=== PATIENT | male | born 1935 | race Caucasian/White ===

== ENCOUNTER 2017-12-05 19:59 | Emergency (ER) | payer MEDICARE ==
[~2017-12-05] VITALS: Ht 180.3 cm; Wt 86.4 kg
[~2017-12-05 19:59] MED LIST: 00186-0372-20 IH; ADALAT CC30 MG PO; ASPI325T6 PO; ASPIRIN 81M81 MG/TA2 PO; CALCIUM WITH D31 CTB PO; CARTIA XT240 MG PO; COLACE 100100 MG/CAP PO; COREG 6.256.25 MG/TA PO; COZAAR100 MG PO; FLOMAX 0.40.4 MG/CAP PO; GLUCOSAMINE & C1 CA1 PO; LORTAB 5/500 501 TAB PO; MULTIPLE VITAMI1 CAP PO; NORCO 325 MG-7.1 TAB PO; NORVASC 5MG5 MG/TAB PO; PREDNISONE20 MG PO; PROAIR HFA0.09 MG/AC IH; RESTASIS 60VL; ROXICODONE 55 MG/TAB PO; SINEMET 25/101 UDTAB PO; SPIRIVA RE2.5 MCG/Ac IH; STOOL SOFTENER100 M2; STOOL SOFTNER; VITAMIN B COMPL1 SGL PO; VOLTAREN 75 DR75 MG PO; VTAMINC250TA; ZOCOR 40MG40 MG PO
[2017-12-05 20:03] VITALS: TEMP 98.3
[2017-12-05 20:42] LABS: HEMATOCRIT 35.3 % (42.0-52.0); HEMOGLOBIN 11.7 g/dl (13.5-18.0); MEAN CELL VOLUME 95 fl (80.0-100.0); MEAN CORPUSCULAR HEMOGLOBIN 32 pg (27.0-31.0); MEAN CORPUSCULAR HGB CONC 33 g/dl (33.0-37.0); MEAN PLATELET VOLUME 9.8 fl (7.4-10.4); PLATELET COUNT 265 K/mm3 (130-400)
[2017-12-05 20:47] LABS: PROTHROMBIN TIME 11.9 SECONDS (9.7-12.8)
[2017-12-05 20:52] LABS: ARTERIAL BLD GAS O2 SATURATION 92.2 % (92-100); ARTERIAL BLOOD GAS BASE EXCESS -0.6 (-2-2); ARTERIAL BLOOD GAS HCO3 24.7 meq/L (22-26); ARTERIAL BLOOD GAS PCO2 43.1 mmHg (35-45); ARTERIAL BLOOD GAS PO2 71.8 mmHg (80-100); ARTERIAL BLOOD GAS pH 7.38 (7.35-7.45)
[2017-12-05 20:52] LABS: ALANINE AMINOTRANSFERASE 29 U/L (21-72); ALBUMIN 3.3 gm/dL (3.5-5.0); ALKALINE PHOSPHATASE 71 U/L (50-136); ANION GAP 8 mmol/L (7-16); AST,SGOT 19 U/L (15-37); BILIRUBIN,TOTAL 0.5 mg/dL (0.0-1.0); BLOOD UREA NITROGEN 48 mg/dL (9-20); CALCIUM 8.5 mg/dL (8.4-10.2); CARBON DIOXIDE 27 mmol/L (22-30); CHLORIDE 101 mmol/L (98-107); CREATININE, serum 2.41 mg/dL (0.66-1.25); GLUCOSE 120 mg/dL (74-106); POTASSIUM 4.5 mmol/L (3.4-5.0); SODIUM 136 mmol/L (137-145); TOTAL PROTEIN 6.5 gm/dL (6.4-8.2)
[2017-12-05 21:05] LABS: TROPONIN-I < 0.012 ng/mL (0.000-0.034)
[2017-12-05 21:18] LABS: BAND 2 % (0-10); BASOPHIL 1 % (0-2); EOSINOPHIL 6 % (0-4); LYMPHOCYTE 23 % (20.0-51.0); NEUTROPHILS 61 % (42.0-75.2); PLATELET ESTIMATE NORMAL (NORMAL)
[2017-12-05] MEDS ORDERED: LEVAQUIN 5500 MG/TA1 PO (21:36)
[2017-12-05 22:50] VITALS: BP 124/72; PULSE 71
== END 2017-12-05 22:50 | disposition home or self-care (01) ==
LOC: COL.ER 19:59
PROVIDERS: Family Medicine
DX: J18.1 Lobar pneumonia, unspecified organism (principal); J44.1 Chronic obstructive pulmonary disease with (acute) exacerbation; I12.9 Hypertensive chronic kidney disease with stage 1 through stage 4 chronic kidney disease, or unspecified chronic kidney disease; N18.9 Chronic kidney disease, unspecified; F17.210 Nicotine dependence, cigarettes, uncomplicated; Z85.038 Personal history of other malignant neoplasm of large intestine
CPT/HCPCS: J0696; J7030

== ENCOUNTER 2018-07-30 21:19 | Inpatient (IN) | payer MEDICARE ==
[~2018-07-30] VITALS: Ht 180.3 cm; Wt 80.0 kg
[~2018-07-30 21:19] MED LIST changes: +LEVAQUIN 5500 MG/TA1 PO; -RESTASIS 60VL; +RESTASIS 60VL OP
[2018-07-30 21:55] LABS: HEMATOCRIT 37.4 % (42.0-52.0); HEMOGLOBIN 12.3 g/dl (13.5-18.0); MEAN CELL VOLUME 96 fl (80.0-100.0); MEAN CORPUSCULAR HEMOGLOBIN 32 pg (27.0-31.0); MEAN CORPUSCULAR HGB CONC 33 g/dl (33.0-37.0); PLATELET COUNT 258 K/mm3 (130-400); RED BLOOD COUNT 3.88 M/mm3 (4.20-5.60)
[2018-07-30 22:08] LABS: ALBUMIN 3.7 gm/dL (3.5-5.0); BILIRUBIN,TOTAL 0.5 mg/dL (0.0-1.0); CALCIUM 8.9 mg/dL (8.4-10.2); CREATININE, serum 2.17 mg/dL (0.66-1.25); POTASSIUM 4.5 mmol/L (3.4-5.0)
[2018-07-30] MEDS ORDERED: ASPIRIN 81M81 MG/TA2 PO (22:12)
[2018-07-30 22:20] LABS: BAND 3 % (0-10); EOSINOPHIL 7 % (0-4); LYMPHOCYTE 16 % (20.0-51.0); MYELOCYTE 1 % (0-0); NEUTROPHILS 62 % (42.0-75.2); PLATELET ESTIMATE NORMAL (NORMAL)
[2018-07-30] MEDS ORDERED: TURMERIC500 MG PO (22:21)
[2018-07-30] MEDS ORDERED: PROFERRIN ES12 MG PO (22:22)
[2018-07-31] VITALS (7 sets, daily range): BP systolic 140–166; BP diastolic 72–102; PULSE 82–97; TEMP 97.1–98.7
[2018-07-31] MEDS ORDERED: COLACE 100100 MG/CAP PO (00:43)
--- NOTE | 2018-07-31 00:55 | NUR ---
Pt. arrived to the floor via stretcher. Pt. is A&OX3, assessment complete. INT to lt. forearm patent. Pt. denies pain or other needs at this time. Call light within reach.
[2018-07-31] MEDS ORDERED: PROCARDIA XL 3030 MG PO (01:46)
[2018-07-31 05:59] LABS: GRAN # 4.1 (1.4-6.5); GRAN % 85.5 % (42.2-75.2); HEMOGLOBIN 11.8 g/dl (13.5-18.0); LYMPH # 0.6 (1.2-3.4); LYMPH % 11.6 % (20.0-51.0); MEAN CELL VOLUME 97 fl (80.0-100.0); MEAN CORPUSCULAR HEMOGLOBIN 31 pg (27.0-31.0); MEAN CORPUSCULAR HGB CONC 32 g/dl (33.0-37.0); MEAN PLATELET VOLUME 10.3 fl (7.4-10.4); MONO # 0.1 (0.1-0.6); MONO % 2.1 % (1.7-9.3); PLATELET COUNT 248 K/mm3 (130-400); RED BLOOD COUNT 3.76 M/mm3 (4.20-5.60); REDCELL DISTRIBUTION WIDTH-CV 12.9 % (11.5-14.5)
[2018-07-31 06:11] LABS: HEMATOCRIT 36.5 % (42.0-52.0)
--- NOTE | 2018-07-31 07:58 | NUR ---
Reported on to [facility]. Pt resting. No complaints of Pain. VSS.
--- NOTE | 2018-07-31 09:38 | NUR ---
Nicole, student [employer], assisting with care this morning. No pain or needs reported during assessment. Rub present with exp. wheezing throughout. Productive cough sample sent to lab this morning. No swelling to lower ext. The call light is in place.
--- NOTE | 2018-07-31 11:01 | NUR ---
Patient resting, no complaints of pain. Put on droplet precautions at 0700. complains of scratchy throat upon swallowing. throat losenge given. Sputum sample collected and sent to lab at 0820. Pt moved to sitting in chair comfrotably.
--- NOTE | 2018-07-31 11:19 | NUR ---
SW attended clinical rounds to discuss discharge planning. Patient lives independently at home with his . Patient's PCP is Dr Gonzales and he obtains prescriptions at [facility] in [place]. Patient does not use any DME or home health services. Patient does have a DPOA and copies are in the EMR. Patient will get an exercise oximetry to find out if home O2 is required. SW will follow up with patient after that test is completed.
--- NOTE | 2018-07-31 11:48 | NUR ---
No change throughout the morning. Sitting up in the chair at this time. The call light is in place.
--- NOTE | 2018-07-31 17:30 | NUR ---
Moved to room 352. is at the bedside. Education related to need for droplet isolation provided. The call light is in place.
--- NOTE | 2018-07-31 21:48 | NUR ---
Patient assessed at this time. Reports shortness of breath, and dyspnea with exertion. Denies at rest. Has been tessie oxygen at 1 L/min via NC when up. Wears CPAP at night. Respirations even and unlabored at rest, labored with exertion. LS CTA. Continues to have occasional cough, with thin clear sputum. Has redness and drainage to back of throat. Has been using choloaseptic spray to help with pain. Encouraged to drink plenty of fluids. Heart with regular rate and rhythm. Bowel sounds active x 4. No edema noted. Resting in bed watching TV at this time. CPAP is on. Voices no needs or concerns at this time.
[2018-08-01 03:04] VITALS: BP 118/54; PULSE 82; TEMP 97.7
[2018-08-01 07:16] VITALS: BP 151/82; PULSE 81; TEMP 97.9
--- NOTE | 2018-08-01 07:26 | NUR ---
Patient denied having pain and discomfort throughout the night. Voiced no needs or concerns. Wore CPAP. Breakfast has been ordered. Sitting upright in bed watching TV at this time. Wearing oxygen at 1 L/min via NC. Denies having SOB and dyspnea at this time. Call light is within reach. Droplet isolation continues.
[2018-08-01 09:14] LABS: BASO % 0.1 % (0.0-2.0); EOS % 0.1 % (0-4.0); GRAN # 11.8 (1.4-6.5); HEMOGLOBIN 11.7 g/dl (13.5-18.0); LYMPH # 1.6 (1.2-3.4); LYMPH % 10.9 % (20.0-51.0); MEAN CELL VOLUME 97 fl (80.0-100.0); MEAN CORPUSCULAR HEMOGLOBIN 32 pg (27.0-31.0); MEAN CORPUSCULAR HGB CONC 33 g/dl (33.0-37.0); MEAN PLATELET VOLUME 9.8 fl (7.4-10.4); MONO # 0.9 (0.1-0.6); MONO % 6.3 % (1.7-9.3); PLATELET COUNT 257 K/mm3 (130-400); REDCELL DISTRIBUTION WIDTH-CV 13.1 % (11.5-14.5)
--- NOTE | 2018-08-01 09:15 | NUR ---
Pt is awake and A/Ox4, sitting up on the side of the bed playing cards. He denies pain or discomfort. He currently remains on room air. Resp. are even and unlabored. Pt is up as tolerated in room, steady gait. Pt updated on plan of care, expressed understanding. Denies any other needs.
[2018-08-01 09:22] LABS: CALCIUM 8.9 mg/dL (8.4-10.2); CREATININE, serum 2.19 mg/dL (0.66-1.25); POTASSIUM 4.5 mmol/L (3.4-5.0)
--- NOTE | 2018-08-01 09:57 | NUR ---
Initial visit; Patient thanked [employer] for looking in on him and offering God's blessings and to keep him in her prayers.
--- NOTE | 2018-08-01 10:59 | NUR ---
PT WALKED APPROX 100 FEET ON RA AT [facility]. SPO2 88 WITH PT C/O DYSPNEA. O2 BACK ON @ 1 LPM PT RECOVERED QUICKLY TO 93%
[2018-08-01] MEDS ORDERED: ZITHROMAX500 M2 PO (11:18)
[2018-08-01] MEDS ORDERED: PROCARDIA XL90 MG PO (11:19)
[2018-08-01] MEDS ORDERED: PREDNISONE10 MG PO (11:26)
[2018-08-01 11:53] VITALS: BP 165/84; PULSE 81; TEMP 98.1
--- NOTE | 2018-08-01 13:32 | NUR ---
DAE and SW student met with patient to discuss O2 options. He reports his PCP had already sent a script to [facility] and he would like to use them. Choice form presented choice form and patient signed. Order obtained from and sent to [facility]. Patient to dc home today with spouse and home o2 through [facility]. No other unmet discharge needs.
--- NOTE | 2018-08-01 13:40 | NUR ---
[facility] asked that patient come to get the o2. Patient is agreeable to this and will go and get the o2. Nurse informed.
--- NOTE | 2018-08-01 13:58 | NUR ---
Pt was discharged home from hospital. All discharge instructions and paperwork was reviewed with pt and his who expressed understanding and had no questions. New prescriptions sent to pharmacy. Saline lock removed, catheter tip intact. Pt was escorted out of facility by staff.
== END 2018-08-01 14:01 | disposition home or self-care (01) | DRG 192 ==
LOC: COL.ER 21:19 → SURG 23:09 → MEDICAL 07-31 15:40
PROVIDERS: Family Medicine; Nurse Practitioner Family; Physician Assistant
DX: J44.1 Chronic obstructive pulmonary disease with (acute) exacerbation (principal); I12.9 Hypertensive chronic kidney disease with stage 1 through stage 4 chronic kidney disease, or unspecified chronic kidney disease; N18.9 Chronic kidney disease, unspecified; Z87.891 Personal history of nicotine dependence; J84.10 Pulmonary fibrosis, unspecified; Z85.040 Personal history of malignant carcinoid tumor of rectum
CPT/HCPCS: 99239; J0696; J1644; J2930; J7512

== ENCOUNTER → 2018-09-07 | Outpatient (CLI) | payer MEDICARE ==
[~2018-09-07] MED LIST changes: +PREDNISONE10 MG PO; +PROCARDIA XL 3030 MG PO; +PROCARDIA XL90 MG PO; +PROFERRIN ES12 MG PO; +TURMERIC500 MG PO; +ZITHROMAX500 M2 PO
== END ==
LOC: COL.RAD 11:32
DX: N28.89 Other specified disorders of kidney and ureter (principal)

== ENCOUNTER → 2019-03-19 | Outpatient (CLI) | payer MEDICARE ==
[~2019-03-19] MED LIST changes: +ZYRTEC 10MG10 MG PO
== END ==
LOC: COL.RAD 08:39
DX: C67.5 Malignant neoplasm of bladder neck (principal); N28.1 Cyst of kidney, acquired

== ENCOUNTER 2020-09-21 18:15 | Emergency (ER) | payer MEDICARE ==
[~2020-09-21] VITALS: Wt 79.5 kg
[~2020-09-21 18:15] MED LIST changes: -MULTIPLE VITAMI1 CAP PO; +MULTIPLE VITAMI1 TA5 PO
[2020-09-21 18:30] VITALS: TEMP 98.5
[2020-09-21 18:51] LABS: BASO % 0.4 % (0.0-2.0); EOS # 0.4 (0.0-0.7); EOS % 5.5 % (0-4.0); GRAN # 4.3 (1.4-6.5); HEMATOCRIT 40.7 % (42.0-52.0); LYMPH # 1.7 (1.2-3.4); LYMPH % 21.8 % (20.0-51.0); MEAN CELL VOLUME 97 fl (80.0-100.0); MEAN CORPUSCULAR HEMOGLOBIN 31 pg (27.0-31.0); MEAN CORPUSCULAR HGB CONC 32 g/dl (33.0-37.0); MEAN PLATELET VOLUME 9.8 fl (7.4-10.4); MONO # 1.1 (0.1-0.6); MONO % 14.5 % (1.7-9.3); PLATELET COUNT 321 K/mm3 (130-400); RED BLOOD COUNT 4.19 M/mm3 (4.20-5.60); REDCELL DISTRIBUTION WIDTH-CV 12.9 % (11.5-14.5)
[2020-09-21 18:58] LABS: PROTHROMBIN TIME 11.4 SECONDS (9.7-12.8)
[2020-09-21 19:00] LABS: ALANINE AMINOTRANSFERASE 14 U/L (4-49); ALBUMIN 3.7 gm/dL (3.5-5.0); ALKALINE PHOSPHATASE 79 U/L (50-136); ANION GAP 7 mmol/L (7-16); AST,SGOT 22 U/L (15-37); BILIRUBIN,TOTAL 0.3 mg/dL (0.0-1.0); BLOOD UREA NITROGEN 45 mg/dL (9-20); CALCIUM 9.3 mg/dL (8.4-10.2); CARBON DIOXIDE 27 mmol/L (22-30); CHLORIDE 103 mmol/L (98-107); CREATININE, serum 2.39 (0.66-1.25); GLUCOSE 100 mg/dL (74-106); POTASSIUM 4.9 mmol/L (3.4-5.0); SODIUM 137 mmol/L (137-145); TOTAL PROTEIN 7.2 gm/dL (6.4-8.2)
[2020-09-21] MEDS ORDERED: VITAMIN D31000 IU PO (19:30)
[2020-09-21 19:39] LABS: TROPONIN-I < 0.012 ng/mL (0.000-0.035)
[2020-09-21 21:16] VITALS: BP 160/81; PULSE 62
== END 2020-09-21 21:16 | disposition short-term general hospital (02) ==
LOC: COL.ER 18:15
PROVIDERS: Nurse Practitioner
DX: N18.9 Chronic kidney disease, unspecified (principal); Z87.891 Personal history of nicotine dependence; Z79.82 Long term (current) use of aspirin; Z79.51 Long term (current) use of inhaled steroids
CPT/HCPCS: J2997